=== PATIENT | female | born 1955 | race Caucasian/White ===

== ENCOUNTER → 2023-12-28 09:33 | Outpatient (REF) | payer OTHER, SELFPAY | LOC: RCS 09:33 | PROVIDERS: ATTENDING PHYSICIAN Internal Medicine Cardiovascular Disease; FAMILY PHYSICIAN Family Medicine | DX: R00.2 Palpitations (principal); E78.5 Hyperlipidemia, unspecified | CPT/HCPCS: 93017 ==

== ENCOUNTER → 2024-01-12 06:23 | Outpatient (REF) | payer OTHER, SELFPAY | LOC: MRI 06:23 | PROVIDERS: ATTENDING PHYSICIAN Family Medicine | DX: M17.11 Unilateral primary osteoarthritis, right knee (principal) | CPT/HCPCS: 73721 ==

== ENCOUNTER 2025-06-07 05:27 | Emergency (ER) | payer OTHER, SELFPAY ==
[2025-06-07 05:30] VITALS: BP 121/83
[2025-06-07] MEDS: ZOFRAN ODT (ORALLY DISINTEGRATING) 4 MG PO (06:57)
[2025-06-07] MEDS: FLEET PHOSPHATE ENEMA-ADULT 135 ML RECTAL (06:58)
--- NOTE | 2025-06-07 07:04 | ED.GENMED ---
History of Present Illness
General
Chief Complaint: Abdominal Pain
Time Seen by Provider: 06/07/25 06:13
History of Present Illness
History of Present Illness:
69-year-old female without significant past medical history presenting to the emergency department for constipation and abdominal pain. Patient reports that constipation started yesterday. She tried Dulcolax and MiraLAX without significant relief
so she took another Dulcolax last night. Denies any changes in her diet or inciting event that has led to this constipation. Does note some nausea and vomiting, contents of vomiting however very watery in color, not feculent. Denies any history
of bowel obstruction. Denies any history of abdominal surgeries. She feels like the stool is in the rectal region, however is not able to evacuate. Denies fever, chest pain, difficulty breathing. Denies additional acute medical complaints.
Phy Exam
Physical Exam
Physical Exam:
General: Well-appearing, no clinical signs of dehydration, nontoxic and in no acute distress
HEENT: protecting airway
Neck: appears supple
CV: Normal heart rate
Resp: No accessory muscle use, no increased work of breathing
Abd: Soft and non-distended, no tenderness to palpation, no distention
Extremities: No deformities, no swelling
Neuro: alert, no focal neurologic deficit
: deferred
Rectal: deferred
Psych: Normal affect
Skin: Intact
Course
Orders/Labs/Results
Orders:
Orders
06/07/25 06:37
Enema- Treatment ONCE
Type: Tap Water
Phosphate Enema [Fleet Phosphate Enema-Adult] 135 ml .ROUTE .STK-MED ONE
06/07/25 06:46
Ondansetron Orally Disint [Zofran Odt (Orally Disintegrating)] 4 mg .ROUTE .STK-MED ONE
06/07/25 06:57
Ondansetron Orally Disint [Zofran Odt (Orally Disintegrating)] 4 mg PO NOW STA
06/07/25 06:58
Phosphate Enema [Fleet Phosphate Enema-Adult] 135 ml RECTAL NOW STA
06/07/25 07:32
Enema- Treatment ONCE
Type: Milk of Molasses
Vital Signs
Initial and Last Documented VS:
Initial Vital Signs
Temp Pulse Resp BP Pulse Ox
97.8 F 87 20 121/83 100
06/07/25 05:30 06/07/25 05:30 06/07/25 05:30 06/07/25 05:30 06/07/25 05:30
Last Documented Vital Signs
Temp Pulse Resp BP Pulse Ox
98.4 F 91 16 125/71 100
06/07/25 09:30 06/07/25 09:30 06/07/25 09:30 06/07/25 09:30 06/07/25 09:30
MDM/Problems Addressed
MDM/Problems Addressed:
44-year-old female presenting for abdominal pain and constipation. Vital signs on arrival are normal.
On exam, patient is in no acute distress, slightly comfortable secondary to pain. No distention to the abdomen, soft and nontender. Lower suspicion for acute bowel obstruction. Suspect uncomplicated constipation. Patient notes that she feels
like the stools in the rectal vault, however is not able to expel. Will try enema and reassess for improvement.
07:30 - Patient was able to get a small amount of stool out, however continues to feel like she cannot expel. Did do rectal exam, stool in the rectal vault which was subsequently removed. Will additionally try a milk of molasses enema and reassess
09:00-patient with successful large bowel movement. At this time continue to suspect uncomplicated constipation. Feel stable for discharge with continued outpatient gentle bowel regiment. Return precautions discussed and patient verbalized
understanding
*Pulse Oximetry
SaO2: 100
Oxygen Mode of Delivery: Room air
Patient hypoxic: no
*Critical Care Note
Total Time (30-74mins, 75-104mins- exclusive of procedures): Not Applicable
ED Attending Note
-
Portions of this chart may have been created with voice recognition software.� Occasional wrong word or��sound alike� substitutions may have occurred due to the inherent limitations of voice recognition software.
Discharge Plan
Departure
Patient Disposition: Home (Routine Discharge)
Date of Disposition: 06/07/25
Time of Disposition: 09:09
Patient with high blood pressure during this ER visit?: No
Condition: Good
Discharge Problem:
Constipation
Instructions: Constipation, Adult (DC)
Referrals:
Vanessa Bragg MD [Family Provider, Family Practice]
Activity Restrictions/Additional Instructions:
You were seen in the emergency department for constipation
You had an enema with successful bowel movement. We recommend continued stool softeners as needed.
Please follow-up closely with your primary care physician.
Return to the emergency department for any worsening of your symptoms, or any development of chest pain, difficulty breathing, abdominal pain with persistent vomiting and inability to tolerate food or liquid by mouth (concern for dehydration),
weakness, headache or confusion, fever greater than 100.4, or any additional symptoms that are concerning to you.
Thank you for choosing [facility] [place].
Interventions
Interventions:
*Risk Screen - Suicide Last Done: 06/07/25 05:30
*General Assessment Last Done: 06/07/25 05:30
*Neglect/Abuse Screening Last Done: 06/07/25 05:30
*ED- Fall Risk Assessment Last Done: 06/07/25 09:30
*ED COVID-19 Vaccine History Last Done: 06/07/25 09:30
*ED Influenza Vaccine History Last Done: 06/07/25 09:30
*Nursing Disposition Last Done: 06/07/25 10:12
GO-Bcygqd-Aegavdoxgm Assessment Last Done: 06/07/25 07:42
Discharge Date and Time
Discharge Date/Time: 06/07/25 09:30
Print Language: LIBERIAN
[2025-06-07 09:30] VITALS: BP 125/71
== END 2025-06-07 09:30 | disposition home or self-care (01) ==
LOC: EMR 05:27
PROVIDERS: EMERGENCY PHYSICIAN Student in an Organized Health Care Education/Training Program; FAMILY PHYSICIAN Family Medicine
DX: K59.00 Constipation, unspecified (principal)
CPT/HCPCS: 99283